=== PATIENT | male | born 1990 | race Caucasian/White ===

== ENCOUNTER 2022-08-14 04:40 | Emergency (ER) | payer OTHER, SELFPAY ==
[2022-08-14 04:50] VITALS: BP 137/99; PULSE 86; RESP 18; TEMP 36.6; O2SAT 99; BMI 29.4
--- NOTE | 2022-08-14 04:51 | ECG_ITS ---
[facility] Test Date: 2022-08-14 Pat Name: Justin Vegas Department: Room: Gender: Male Trommel Tender: : 1990 Requested By: Jahaira Herman Order Number: [id number] Benjamín MD: Tone Cody M.D. Measurements Intervals [place] Rate: 105 P: 79 TN: 165 QRS: 84 QRSD: 94 T: 87 QT: 267 QTc: 353 Interpretive Statements SINUS TACHYCARDIA NONSPECIFIC T-WAVE ABNORMALITY No previous ECG available for comparison Electronically Signed On 08-14-2022 23:27:22 [employer] by Tone Cody M.D. [id number]
--- NOTE | 2022-08-14 04:51 | W.ED.ABDPA2 ---
Documented by User: Jahaira Herman MD 08/14/22 05:24 HPI - Abdominal Pain General: Chief Complaint: Abdominal Pain Stated Complaint: ABD Pain Time Seen by Provider: 08/14/22 04:46 Source: patient Mode of arrival: ambulatory Limitations: no limitations History of Present Illness: 32-year-old male states he started having epigastric abdominal pain along with right-sided abdominal pain that was severe in nature started at 1230 states he had 1 episode of vomiting states pain is currently an 8 out of 10 he denies any radiation of his pain he denies any worsening improving factors. He denies any dysuria. Associated Symptoms: Reports nausea and vomiting; Denies chills, dysuria and fever(s) Review of Systems Const: Denies: fever(s), chills, body aches or change in appetite Eyes: Denies: blurry vision or eye discomfort ENMT: Denies: throat pain or dental pain Card: Denies: chest pain Resp: Denies: dyspnea GI: Reports: abdominal pain, nausea and vomiting : Denies: dysuria Musc: Denies: neck pain or back pain Skin/Breast: Denies: rash Neuro: Denies: headache(s) Psych: Denies: depression Charles/Lymph: Denies: easy bruising All/Imm: Denies: urticaria PFSH ED PFSH: Medical History No pertinent past medical history Social History (Updated 08/14/22 @ 04:52 by Jahaira Herman MD) Substance/Drug Use: never Physical Exam Const: COMMON NORMALS: no acute distress, patient oriented x3 and healthy appearing HENMT: COMMON NORMALS: normocephalic and atraumatic HEAD & SCALP: normocephalic and atraumatic Eye: COMMON NORMALS: Equal, round and reactive pupils present and EOMs intact bilaterally PUPIL: Yes Equal, round and reactive pupils present Neck/C-Spine: COMMON NORMALS: full ROM and supple Chest: COMMONS NORMALS: normal inspection of the chest and normal palpation of entire chest wall Resp: COMMON NORMALS: normal respiratory effort, No retractions, No use of accessory muscles and clear to auscultation bilaterally AUSCULTATION: clear to auscultation bilaterally Cardio: COMMON NORMALS: regular rate, regular rhythm and No murmurs present (Cardio) RATE: regular rate RHYTHM: regular rhythm GI: COMMON NORMALS: Normal to inspection, nondistended, normoactive bowel sounds present, Soft to palpation, non-tender and no masses PALPATION: Yes Soft to palpation Extremity: COMMON NORMALS: normal to inspection and full ROM Neuro: COMMON NORMALS: patient oriented x3, moves all extremities and no focal motor deficits Psych: COMMON NORMALS: mental status grossly normal, Normal thought process present and cooperative THOUGHT PROCESS: Normal thought process present Skin: COMMON NORMALS: no rashes or lesions noted and no wounds GENERAL SKIN EXAM: no rashes or lesions noted Course Vital Signs: Vital signs: Vital Signs Temperature 97.9 F 08/14/22 04:50 Pulse Rate 87 08/14/22 07:28 Respiratory Rate 32 H 08/14/22 05:05 Blood Pressure 134/88 08/14/22 07:28 Pulse Oximetry 97 08/14/22 07:28 Oxygen Delivery Me thod 08/14/22 07:28 MDM - Abdominal Pain Lab Data 08/14/22 05:00 08/14/22 05:00 Labs/Radiology: Radiology Impressions Abdomen/Pelvis CT 08/14/22 04:53 IMPRESSION: 1. No free intraperitoneal air. 2. Several small bowel loops are fluid-filled and borderline/mildly prominent in size, see above discussion. This appearance could be secondary to some form of gastroenteritis. 3. Possible thickened mucosa/wall in the distal stomach, see above discussion. 4. Couple of mildly prominent right lower quadrant mesenteric lymph nodes, see above discussion. 5. Small left adrenal nodule, see above discussion. 6. Other findings discussed above. Chest X-Ray 08/14/22 05:34 IMPRESSION: 1. Mild perihilar opacities bilaterally, with some peribronchial thickening. See above discussion. 2. Other findings discussed above. Laboratory Results WBC 7.2 10^3/uL (4.0-10.0) 08/14/22 05:00 RBC 5.17 10^6/uL (4.1-5.3) 08/14/22 05:00 Hgb 15.6 g/dL (11.7-16.6) 08/14/22 05:00 Hct 44.9 % (42.0-52.0) 08/14/22 05:00 MCV 86.8 fl (80-94) 08/14/22 05:00 MCH 30.2 pg (28.0-34.0) 08/14/22 05:00 MCHC 34.7 g/dL (30.0-36.0) 08/14/22 05:00 RDW 11.5 % (12.1-15.1) L 08/14/22 05:00 Plt Count 318 10^3/cmm (130-400) 08/14/22 05:00 MPV 8.6 fL (7.4-10.4) 08/14/22 05:00 Neut % (Auto) 71.9 % 08/14/22 05:00 Lymph % (Auto) 22.4 % 08/14/22 05:00 [place] % (Auto) 4.3 % 08/14/22 05:00 Eos % (Auto) 1.0 % 08/14/22 05:00 Baso % (Auto) 0.3 % 08/14/22 05:00 Neut # (Auto) 5.14 10^3/uL (1.8-7.7) 08/14/22 05:00 Lymph # (Auto) 1.6 10^3/uL (0.8-4.8) 08/14/22 05:00 [place] # (Auto) 0.3 10^3/uL (0.2-0.9) 08/14/22 05:00 Eos # (Auto) 0.1 10^3/uL (0.0-0.8) 08/14/22 05:00 Baso # (Auto) 0.0 10^3/uL (0.0-0.1) 08/14/22 05:00 Nucleated RBC % (auto) 0 % 08/14/22 05:00 Nucleated RBCs # 0.0 /100WBC 08/14/22 05:00 Sodium 135 mmol/L (136-145) L 08/14/22 05:00 Potassium 4.1 mmol/L (3.5-5.1) 08/14/22 05:00 Chloride 99 mmol/L (98-107) 08/14/22 05:00 Carbon Dioxide 22 mmol/L (22-29) 08/14/22 05:00 Anion Gap 18.1 (5-19) 08/14/22 05:00 BUN 15 mg/dL (6-20) 08/14/22 05:00 Creatinine 0.9 mg/dL (0.7-1.2) 08/14/22 05:00 GFR Calculation 98.4 mL/min (90-130) 08/14/22 05:00 Glucose 158 mg/dL (65-115) H 08/14/22 05:00 Calculated Osmolality 284 mOsm/kg (285-295) L 08/14/22 05:00 Calcium 9.7 mg/dL (8.5-10.5) 08/14/22 05:00 Total Bilirubin 0.5 mg/dL (0.15-1.2) 08/14/22 05:00 AST 21 U/L (0-40) 08/14/22 05:00 ALT 22 U/L (0-41) 08/14/22 05:00 Alkaline Phosphatase 104 U/L (40-130) 08/14/22 05:00 Total Protein 7.8 g/dL (6.6-8.7) 08/14/22 05:00 Albumin 4.8 g/dL (3.5-5.2) 08/14/22 05:00 Globulin 3.0 g/dL (1.3-4.6) 08/14/22 05:00 Lipase 21 U/L (13-60) 08/14/22 05:00 Urine Color Yellow (Yellow) 08/14/22 06:04 Urine Appearance Sl hazy (CLEAR) A 08/14/22 06:04 Urine pH 8 (5-7) H 08/14/22 06:04 Ur Specific [place] 1.015 (1.005-1.030) 08/14/22 06:04 Urine Protein Neg (Negative) 08/14/22 06:04 Urine Glucose (UA) Norm (Normal) 08/14/22 06:04 Urine Ketones Negative (Negative) 08/14/22 06:04 Urine Blood Neg (Negative) 08/14/22 06:04 Urine Nitrate Negative (Negative) 08/14/22 06:04 Urine Bilirubin Neg (Negative) 08/14/22 06:04 Prot Sulfosalicylic Acd Negative (Negative) 08/14/22 06:04 Urine Urobilinogen Norm mg/dL (Negative) 08/14/22 06:04 Ur Leukocyte Esterase Negative (Negative) 08/14/22 06:04 Discharge Plan Discharge Patient Disposition: Home Clinical Impression: Abdominal pain, Gastroenteritis Prescriptions: New Protonix 40 mg tablet,delayed release (DR/EC) 40 mg PO DAILY Qty: 60 0RF ondansetron HCl 4 mg tablet 4 mg PO Q6H PRN (Reason: nausea and vomiting) Qty: 20 0RF Discharge Orders: Discharge ED (Routine); Ordered 08/14/22 Ordered By: Calin Ayers Referrals: Richard Izquierdo DO [Physician] - 1-3 days Quincy Rivera MD [Physician] - 1-3 days Discharge Diet: Advance as tolerated Discharge Activity: Resume usual activity Patient Instructions: Abdominal Pain (ED) Activity Restrictions/Additional Instructions: You are seen in the emergency room for abdominal pain. Your white count is normal. CT of your abdomen and shows evidence of lymph nodes and small areas of bowel irritation consistent with gastroenteritis. Recommend clear liquid diet for next 24 to 48 hours antiemetics as needed for symptoms follow-up as needed return to the emergency room if your symptoms worsen significantly. Sign Out Sign Out Data: Patient Sign Out occurred on 08/14/22 at 07:13. Patient's care was discussed, and care was transferred from to Calin Ayers DO. Coding Level of Care Code ED Double Back Operator for Chg Fwd Exam Comprehensive Documented by User: Calin Ayers DO 08/14/22 07:44 HPI - Abdominal Pain General: Chief Complaint: Abdominal Pain Stated Complaint: ABD Pain Time Seen by Provider: 08/14/22 04:46 PFSH ED PFSH: Medical History No pertinent past medical history Social History (Updated 08/14/22 @ 04:52 by Jahaira Herman MD) Substance/Drug Use: never Course Vital Signs: Vital signs: Vital Signs Temperature 97.9 F 08/14/22 04:50 Pulse Rate 87 08/14/22 07:28 Respiratory Rate 32 H 08/14/22 05:05 Blood Pressure 134/88 08/14/22 07:28 Pulse Oximetry 97 08/14/22 07:28 Oxygen Delivery Me thod 08/14/22 07:28 MDM - Abdominal Pain Medical Decision Making Patient care handoff received from Batsheva continuation of ED evaluation. I personally saw and reevaluated. I discussed patient with Dr. Herman at change of shift. Patient's only complaint has been abdominal. CT shows some fluid-filled loops of bowel and some adenopathy consistent with gastroenteritis. Chest x-ray was read as pneumonitis however patient does not have any respiratory symptoms. He not complain of any respiratory symptoms and his evaluation was normal. He is only complaint was nausea. He did receive Ativan after which he was somewhat sedate and briefly was given supplemental oxygen however when I returned to reevaluate the patient we turned the oxygen off and his sats remained in the normal range. Advised patient likely gastroenteritis is clear-cut 24 to 48 hours ondansetron as needed. He has any worsening change symptoms return. Since he is not having any respiratory symptoms did not treat the reported findings on the chest x-ray. Medical Records I reviewed the patient's medical records. Lab Data I reviewed the patient's lab results. 08/14/22 05:00 08/14/22 05:00 Labs/Radiology: Radiology Impressions Abdomen/Pelvis CT 08/14/22 04:53 IMPRESSION: 1. No free intraperitoneal air. 2. Several small bowel loops are fluid-filled and borderline/mildly prominent in size, see above discussion. This appearance could be secondary to some form of gastroenteritis. 3. Possible thickened mucosa/wall in the distal stomach, see above discussion. 4. Couple of mildly prominent right lower quadrant mesenteric lymph nodes, see above discussion. 5. Small left adrenal nodule, see above discussion. 6. Other findings discussed above. Chest X-Ray 08/14/22 05:34
--- NOTE | 2022-08-14 04:53 | CTR_ITS ---
PROCEDURE INFORMATION: Exam: CT Abdomen And Pelvis With Contrast Exam date and time: 08/14/2022 5:07 AM Age: 32 years old Clinical indication: Abdominal pain; Prior surgery; Surgery type: Hernia repair. Appy. Patient HX: C/O severe periumbilical pain. ; Additional info: Abd pain TECHNIQUE: Imaging protocol: Computed tomography of the abdomen and pelvis with contrast. Radiation optimization: All CT scans at this facility use at least one of these dose optimization techniques: automated exposure control; mA and/or kV adjustment per patient size (includes targeted exams where dose is matched to clinical indication); or iterative reconstruction. Contrast material: OMNI 350; Contrast volume: 100 ml; Contrast route: INTRAVENOUS (IV); Other protocol: This patient has received 0 known CTs and 0 known cardiac nuclear medicine studies in the 12 months prior to the current study. COMPARISON: CT abdomen pelvis w con* [id number] 03/20/2017 9:55 AM RADIATION DOSE METRICS: Total DLP (mGy-cm): 646.53 FINDINGS: Lungs: The lung bases are clear. Liver: Unremarkable. Gallbladder and bile ducts: No definite gallbladder abnormality by CT. No biliary tree dilation. Pancreas: Unremarkable. Spleen: Unremarkable. Adrenal glands: There is a 23 x 17 mm nodule in the left adrenal gland. In 2017, it measured about 12 x 8 mm. Statistically, this is still most likely a benign adenoma, and it measures close to water attenuation even on this postcontrast scan. If there is clinical suspicion to suspect any other lesion, a follow-up noncontrast CT, or MRI of the adrenal glands may be useful in the future for further followup, or evaluation/characterization. The right adrenal gland appears unremarkable Kidneys and ureters: Unremarkable. Stomach and bowel: Several small bowel loops are fluid-filled and borderline/mildly prominent in size. The proximal jejunum appears most prominent. However, the overall appearance is not strongly suggestive of significant small bowel obstruction at this time. This appearance could be secondary to some form of gastroenteritis. Please correlate clinically. If there is clinical suspicion for small bowel obstruction, follow-up may be helpful to exclude progression. Possibility of somewhat thickened mucosa/wall in the distal stomach. This is a nonspecific appearance, and could be transient on CT due to poor gastric distention. This could also represent evidence for gastritis or peptic ulcer disease. Please correlate clinically. There are no CT findings to strongly suggest diverticulitis. Appendix: Reportedly, there has been prior appendectomy. Intraperitoneal space: No free intraperitoneal air, or ascites. Vasculature: No evidence for abdominal aortic aneurysm. Lymph nodes: Couple of mildly prominent right lower quadrant mesenteric lymph nodes. This is a nonspecific appearance. Mesenteric adenitis might be considered. However, the appearance is relatively mild, and similar to the prior exam. Please correlate clinically. Urinary bladder: Unremarkable as visualized. Reproductive: Essentially unremarkable for age. Bones/joints: There is bilateral L5 spondylolysis, no significant/obvious spondylolisthesis. No significant change. Soft tissues: Very small umbilical hernia, containing only fat. CT/CT abdomen pelvis w con* [id number] IMPRESSION: 1. No free intraperitoneal air. 2. Several small bowel loops are fluid-filled and borderline/mildly prominent in size, see above discussion. This appearance could be secondary to some form of gastroenteritis. 3. Possible thickened mucosa/wall in the distal stomach, see above discussion. 4. Couple of mildly prominent right lower quadrant mesenteric lymph nodes, see above discussion. 5. Small left adrenal nodule, see above discussion. 6. Other findings discussed above.
[2022-08-14 05:05] VITALS: RESP 32
[2022-08-14] MEDS: ondansetron 2 mg/ML SDV 2 mL 4 MG IVP (05:05)
[2022-08-14] MEDS: HYDROmorphone 1 mg/mL INJ 1 mL IVP (05:05)
[2022-08-14] MEDS: sodium chloride 0.9% 1,000 ML 999 ML IV (05:07)
[2022-08-14] MEDS: iohexol 350 mg/mL 500 mL Btl (per mL) IV (05:10)
[2022-08-14 05:13] LABS: Basophils % 0.3 %; Eosinophils # 0.1 10^3/uL (0.0-0.8); Hematocrit 44.9 % (42.0-52.0); Hemoglobin 15.6 g/dL (11.7-16.6); Lymphocytes # 1.6 10^3/uL (0.8-4.8); Lymphocytes % 22.4 %; Mean Corpuscular HGB Conc 34.7 g/dL (30.0-36.0); Mean Corpuscular Hemoglobin 30.2 pg (28.0-34.0); Mean Corpuscular Volume 86.8 fl (80-94); Mean Platelet Volume 8.6 fL (7.4-10.4); Monocytes # 0.3 10^3/uL (0.2-0.9); Monocytes % 4.3 %; Neutrophils # 5.14 10^3/uL (1.8-7.7); Neutrophils % 71.9 %; Nucleated Red Blood Cells % 0 %; Platelet Count 318 10^3/cmm (130-400); Red Blood Count 5.17 10^6/uL (4.1-5.3); Red Cell Distribution Width 11.5 % (12.1-15.1); White Blood Count 7.2 10^3/uL (4.0-10.0)
[2022-08-14 05:32] LABS: Alanine Aminotransferase 22 U/L (0-41); Albumin Level 4.8 g/dL (3.5-5.2); Alkaline Phosphatase 104 U/L (40-130); Anion Gap 18.1 (5-19); Aspartate Amino Transferase 21 U/L (0-40); Blood Urea Nitrogen 15 mg/dL (6-20); Calcium 9.7 mg/dL (8.5-10.5); Carbon Dioxide 22 mmol/L (22-29); Chloride 99 mmol/L (98-107); Glomerular Filtration Rate 98.4 mL/min (90-130); Glucose 158 mg/dL (65-115); Lipase 21 U/L (13-60); Osmolality Calculated 284 mOsm/kg (285-295); Potassium 4.1 mmol/L (3.5-5.1); Sodium 135 mmol/L (136-145); Total Bilirubin 0.5 mg/dL (0.15-1.2); Total Protein 7.8 g/dL (6.6-8.7)
--- NOTE | 2022-08-14 05:34 | XRR_ITS ---
PROCEDURE INFORMATION: Exam: XR Chest Exam date and time: 08/14/2022 5:37 AM Age: 32 years old Clinical indication: Tachypnea; Patient HX: Patient persistently tachypneic while in er. ; Additional info: Abd pain TECHNIQUE: Imaging protocol: Radiologic exam of the chest. Views: 1 view. COMPARISON: CT abdomen pelvis w con* [id number] 08/14/2022 5:07 AM FINDINGS: Lungs: There are mild perihilar opacities bilaterally, with some peribronchial thickening. While nonspecific, this appearance could represent evidence for mild CHF/interstitial pulmonary edema. Some type of bronchitis/pneumonitis might also be considered. Please correlate clinically. Pleural spaces: No visible pneumothorax. No definite pleural fluid. Heart/Mediastinum: Heart size is within normal limits. Bones/joints: No significant acute finding. XR/XR chest 1V portable [id number] IMPRESSION: 1. Mild perihilar opacities bilaterally, with some peribronchial thickening. See above discussion. 2. Other findings discussed above.
[2022-08-14] MEDS: LORazepam 2 mg/mL INJ 1 mL 1 MG IVP (05:39)
[2022-08-14 06:13] LABS: Add Urine Microscopic? NO; Charge for UA Resulting for Rev
[2022-08-14 06:21] LABS: Bilirubin Urine Neg (Negative); Blood Urine Neg (Negative); Glucose Urine UA Norm (Normal); Ketones Urine Negative (Negative); Leukocyte Esterase Urine Negative (Negative); Nitrate Urine Negative (Negative); Protein Urine Neg (Negative); Specific Gravity, Urine 1.015 (1.005-1.030); Sulfosalicylic Acid Urine Negative (Negative); Urine Appearance SL Hazy (CLEAR); Urine Color Yellow (Yellow); Urobilinogen Urine Norm (Negative); pH Urine 8 (5-7)
[2022-08-14 07:28] VITALS: BP 134/88; PULSE 87; O2SAT 97
--- NOTE | 2022-08-14 09:12 | DCPLANNER ---
Addendum entered by Sushila De Anda 09/09/22 08:07: Patient had a follow up appointment scheduled with general surgery - patient did attend appointment. Addendum entered by Sushila De Anda 08/18/22 14:52: Patient has a follow up appointment scheduled for Thursday, August 25, 2022 at 10:[address] Izquierdo at general surgery. Clinic will call patient with appointment information. Original Note: competitive intelligence manager had message to schedule a follow up appointment for patient with general surgery. competitive intelligence manager sent patients information to the front office staff at general surgery. Patients information will be printed and reviewed. Clinic will call patient with appointment information.
== END 2022-08-14 07:32 | disposition home or self-care (01) ==
PROVIDERS: Emergency Medicine; Emergency Provider Family Medicine
DX: K52.9 Noninfective gastroenteritis and colitis, unspecified (principal); R10.13 Epigastric pain
CPT/HCPCS: 71045; 74177; 80053; 81003; 83690; 85025; 93005; 96374; 96375; 99285; J1170; J2060; J2405; J7030; Q9967

== ENCOUNTER 2022-08-15 20:47 | Emergency (ER) | payer OTHER, SELFPAY ==
[2022-08-15 20:51] VITALS: BP 157/103; PULSE 75; RESP 19; TEMP 37.2; O2SAT 100; BMI 29.4
[2022-08-15 21:16] VITALS: BP 137/90; PULSE 73; RESP 20; O2SAT 100
--- NOTE | 2022-08-15 21:20 | PC.NURSE ---
[facility] 2120- pt resting in bed with spouse at bedside. Monitor alarms with pts spo2 sats 76%. Patient appears to be asleep without taking deep breaths. No medications have been administered so far by ER. Attempt to arouse pt, and Dr Levin in room provided jaw trust. O2 via nc @ 2l placed on pt. Sats 98%. Pt awake / alert at this time.
--- NOTE | 2022-08-15 21:53 | CTR_ITS ---
PROCEDURE INFORMATION: Exam: CT Abdomen And Pelvis With Contrast Exam date and time: 08/15/2022 10:21 PM Age: 32 years old Clinical indication: Abdominal pain; Epigastric TECHNIQUE: Imaging protocol: Computed tomography of the abdomen and pelvis with contrast. Radiation optimization: All CT scans at this facility use at least one of these dose optimization techniques: automated exposure control; mA and/or kV adjustment per patient size (includes targeted exams where dose is matched to clinical indication); or iterative reconstruction. Contrast material: OMNI 350; Contrast volume: 100 ml; Contrast route: INTRAVENOUS (IV); Other protocol: This patient has received [address] and 0 known cardiac nuclear medicine studies in the 12 months prior to the current study. COMPARISON: CT abdomen pelvis w con* [id number] 08/14/2022 5:07 AM RADIATION DOSE METRICS: Total DLP (mGy-cm): 633.33 FINDINGS: Lungs: Lung bases are clear. Liver: There is no focal abnormality within the liver. Gallbladder and bile ducts: Gallbladder is mildly distended but otherwise unremarkable. Gallbladder is 9 cm in length and over 4 cm in diameter. Pancreas: The pancreas is normal. Spleen: The spleen is normal. Adrenal glands: There is a 2 cm sized hypoenhancing left adrenal mass. This measures around 20 Hounsfield units and is indeterminate on this examination. As this is significantly larger than on 03/20/2017 when it measured 12 mm further evaluation such as with non urgent adrenal CT scan recommended. Kidneys and ureters: The kidneys are normal. There is no evidence of hydronephrosis. There is no evidence of renal or ureteral calcifications. Stomach and bowel: There is no evidence of colitis/diverticulitis. There is no evidence of intestinal obstruction. Appendix: There has been an appendectomy. Intraperitoneal space: There is no evidence of free intraperitoneal fluid. There is no free intraperitoneal air. Vasculature: The aorta is normal. Lymph nodes: There is no evidence of lymphadenopathy. A few mildly prominent right lower quadrant mesenteric lymph nodes again identified not significantly changed since 03/20/2017. Urinary bladder: Unremarkable as visualized. Reproductive: Unremarkable as visualized. Bones/joints: Unremarkable. No acute fracture. Soft tissues: Unremarkable. CT/CT abdomen pelvis w con* [id number] IMPRESSION: 1. Mild distention of the gallbladder similar to 03/20/2017. 2. Left adrenal nodule as described, larger than on 03/20/2017. Follow-up non urgent adrenal protocol CT suggested. 3. No acute finding.
[2022-08-15 22:00] LABS: Basophils % 0.5 %; Eosinophils # 0.1 10^3/uL (0.0-0.8); Eosinophils % 1.2 %; Hematocrit 44.7 % (42.0-52.0); Hemoglobin 15.2 g/dL (11.7-16.6); Lymphocytes % 22.6 %; Mean Corpuscular Hemoglobin 30.2 pg (28.0-34.0); Mean Corpuscular Volume 88.7 fl (80-94); Mean Platelet Volume 8.9 fL (7.4-10.4); Monocytes # 0.5 10^3/uL (0.2-0.9); Monocytes % 5.1 %; Neutrophils # 6.22 10^3/uL (1.8-7.7); Neutrophils % 70.4 %; Nucleated Red Blood Cells % 0 %; Platelet Count 352 10^3/cmm (130-400); Red Blood Count 5.04 10^6/uL (4.1-5.3); Red Cell Distribution Width 11.6 % (12.1-15.1); White Blood Count 8.8 10^3/uL (4.0-10.0)
[2022-08-15 22:03] VITALS: RESP 22
[2022-08-15] MEDS: iohexol 350 mg/mL 500 mL Btl (per mL) IV (22:03)
[2022-08-15] MEDS: morphine 4 mg/mL SDV 1 mL IVP (22:03)
[2022-08-15] MEDS: pantoprazole DR 40 mg Tablet PO (22:03)
[2022-08-15] MEDS: lidocaine 2% viscous 15 ML, aluminum-mag hydrox-simethicon 30 ML, sucralfate oral liq 1 GM PO (22:04)
[2022-08-15 22:11] LABS: Alanine Aminotransferase 19 U/L (0-41); Albumin Level 4.7 g/dL (3.5-5.2); Alkaline Phosphatase 101 U/L (40-130); Anion Gap 14.9 (5-19); Aspartate Amino Transferase 15 U/L (0-40); Blood Urea Nitrogen 7 mg/dL (6-20); Calcium 10.1 mg/dL (8.5-10.5); Carbon Dioxide 26 mmol/L (22-29); Chloride 98 mmol/L (98-107); Globulin 2.5 g/dL (1.3-4.6); Glomerular Filtration Rate 112.8 mL/min (90-130); Glucose 101 mg/dL (65-115); Lipase 17 U/L (13-60); Osmolality Calculated 278 mOsm/kg (285-295); Potassium 3.9 mmol/L (3.5-5.1); Sodium 135 mmol/L (136-145); Total Bilirubin 0.6 mg/dL (0.15-1.2); Total Protein 7.2 g/dL (6.6-8.7)
--- NOTE | 2022-08-15 23:21 | W.ED.ABDPA2 ---
HPI - Abdominal Pain General: Chief Complaint: Abdominal Pain Stated Complaint: upper abdomen pain, cp Time Seen by Provider: 08/15/22 21:11 Source: patient and family () Mode of arrival: ambulatory Limitations: no limitations History of Present Illness: This 32-year-old male presents with epigastric pain that started 2 days ago. Pain is sharp in nature and constant. He was seen here yesterday following which CT abdomen/pelvis was done. It was essentially unremarkable. Patient reports that eating or drinking makes the pain worse. He has no fever but does have nausea. He tried Tums with no relief. Associated Symptoms: Reports nausea and vomiting; Denies chills and dysuria Review of Systems Const: Denies: chills, body aches or change in appetite Eyes: Denies: change in vision or eye discharge ENMT: Denies: throat pain, dental pain or nasal discharge Card: Denies: chest pain or lightheadedness GI: Reports: abdominal pain (Epigastric), nausea and vomiting : Denies: dysuria Musc: Denies: neck pain or back pain Neuro: Denies: headache(s) or weakness in extremities Psych: Denies: depression Charles/Lymph: Denies: easy bruising All/Imm: Denies: urticaria, tongue swelling or facial swelling PFSH ED PFSH: Medical History No pertinent past medical history Physical Exam Const: COMMON NORMALS: patient oriented x3, no limitations and alert OTHER: Moderate distress due to epigastric pain HENMT: COMMON NORMALS: normocephalic HEAD & SCALP: normocephalic Eye: COMMON NORMALS: EOMs intact bilaterally Neck/C-Spine: COMMON NORMALS: full ROM and supple Chest: COMMONS NORMALS: normal inspection of the chest Resp: COMMON NORMALS: normal respiratory effort, No retractions, No use of accessory muscles and clear to auscultation bilaterally AUSCULTATION: clear to auscultation bilaterally Cardio: COMMON NORMALS: regular rate, regular rhythm and No murmurs present (Cardio) RATE: regular rate RHYTHM: regular rhythm GI: COMMON NORMALS: Normal to inspection, nondistended, normoactive bowel sounds present OTHER: Soft abdomen, tenderness in the epigastric region. No distention or rigidity. Normal bowel sounds. : COMMON NORMALS: Yes no CVA tenderness BLADDER/KIDNEY EXAM: Yes no CVA tenderness Back/Pelvis: COMMON NORMALS: no CVA tenderness and no thoracic nor lumbar tenderness Extremity: GENERAL: Yes normal exam except as noted Neuro: COMMON NORMALS: patient oriented x3 and no focal motor deficits SENSORIUM/ORIENTATION: Yes alert Psych: COMMON NORMALS: mental status grossly normal and cooperative Course Vital Signs: Vital signs: Vital Signs Temperature 99.0 F 08/15/22 20:51 Pulse Rate 73 08/15/22 21:16 Respiratory Rate 22 H 08/15/22 22:03 Blood Pressure 137/90 08/15/22 21:16 Pulse Oximetry 100 08/15/22 21:16 Oxygen Delivery Me thod 08/15/22 20:51 MDM - Abdominal Pain Medical Decision Making Medical decision making: History as above. Given the degree of pain and tenderness patient has in the epigastric area, CT abdomen/pelvis was repeated. Again it is negative for any acute findings. The gallbladder appears mildly distended but this seems to be the case in his last CT. Completed blood tests are unremarkable with normal lipase and normal white count with no left shift. Given his persistence of symptoms, I believe that he will benefit from an outpatient HIDA scan to assess the gallbladder function. His pain could also be from gastritis. Acute pancreatitis is unlikely at this time. In the meantime, he was advised to continue taking the Protonix he was given yesterday. I will add Gonzales to help control his pain while he follows up with his primary care physician as already scheduled in 2 days time. His primary care physician will set him up for an outpatient HIDA scan. Patient was advised to return if he develops worsening pain, fever, intractable vomiting or any new concerning symptoms. He verbalized understanding and agrees with the plan. Lab Data 08/15/22 21:13 08/15/22 21:13 Labs/Radiology: Radiology Impressions Abdomen/Pelvis CT 08/15/22 21:53 IMPRESSION: 1. Mild distention of the gallbladder similar to 03/20/2017. 2. Left adrenal nodule as described, larger than on 03/20/2017. Follow-up non urgent adrenal protocol CT suggested. 3. No acute finding. Laboratory Results WBC 8.8 10^3/uL (4.0-10.0) 08/15/22 21:13 RBC 5.04 10^6/uL (4.1-5.3) 08/15/22 21:13 Hgb 15.2 g/dL (11.7-16.6) 08/15/22 21:13 Hct 44.7 % (42.0-52.0) 08/15/22 21:13 MCV 88.7 fl (80-94) 08/15/22 21:13 MCH 30.2 pg (28.0-34.0) 08/15/22 21:13 MCHC 34.0 g/dL (30.0-36.0) 08/15/22 21:13 RDW 11.6 % (12.1-15.1) L 08/15/22 21:13 Plt Count 352 10^3/cmm (130-400) 08/15/22 21:13 MPV 8.9 fL (7.4-10.4) 08/15/22 21:13 Neut % (Auto) 70.4 % 08/15/22 21:13 Lymph % (Auto) 22.6 % 08/15/22 21:13 Grand % (Auto) 5.1 % 08/15/22 21:13 Eos % (Auto) 1.2 % 08/15/22 21:13 Baso % (Auto) 0.5 % 08/15/22 21:13 Neut # (Auto) 6.22 10^3/uL (1.8-7.7) 08/15/22 21:13 Lymph # (Auto) 2.0 10^3/uL (0.8-4.8) 08/15/22 21:13 Grand # (Auto) 0.5 10^3/uL (0.2-0.9) 08/15/22 21:13 Eos # (Auto) 0.1 10^3/uL (0.0-0.8) 08/15/22 21:13 Baso # (Auto) 0.0 10^3/uL (0.0-0.1) 08/15/22 21:13 Nucleated RBC % (auto) 0 % 08/15/22 21:13 Nucleated RBCs # 0.0 /100WBC 08/15/22 21:13 Sodium 135 mmol/L (136-145) L 08/15/22 21:13 Potassium 3.9 mmol/L (3.5-5.1) 08/15/22 21:13 Chloride 98 mmol/L (98-107) 08/15/22 21:13 Carbon Dioxide 26 mmol/L (22-29) 08/15/22 21:13 Anion Gap 14.9 (5-19) 08/15/22 21:13 BUN 7 mg/dL (6-20) 08/15/22 21:13 Creatinine 0.8 mg/dL (0.7-1.2) 08/15/22 21:13 GFR Calculation 112.8 mL/min (90-130) 08/15/22 21:13 Glucose 101 mg/dL (65-115) 08/15/22 21:13 Calculated Osmolality 278 mOsm/kg (285-295) L 08/15/22 21:13 Calcium 10.1 mg/dL (8.5-10.5) 08/15/22 21:13 Total Bilirubin 0.6 mg/dL (0.15-1.2) 08/15/22 21:13 AST 15 U/L (0-40) 08/15/22 21:13 ALT 19 U/L (0-41) 08/15/22 21:13 Alkaline Phosphatase 101 U/L (40-130) 08/15/22 21:13 Total Protein 7.2 g/dL (6.6-8.7) 08/15/22 21:13 Albumin 4.7 g/dL (3.5-5.2) 08/15/22 21:13 Globulin 2.5 g/dL (1.3-4.6) 08/15/22 21:13 Lipase 17 U/L (13-60) 08/15/22 21:13 Discharge Plan Discharge Patient Disposition: Home Clinical Impression: Epigastric abdominal pain, Gastritis Condition: Stable Prescriptions: New hydrocodone-acetaminophen 5-325 mg tablet 1 tab PO Q6H PRN (Reason: pain) Qty: 20 0RF No Action Protonix 40 mg tablet,delayed release (DR/EC) 40 mg PO DAILY Qty: 60 0RF ondansetron HCl 4 mg tablet 4 mg PO Q6H PRN (Reason: nausea and vomiting) Qty: 20 0RF Discharge Orders: Discharge ED (Routine); Ordered 08/15/22 Ordered By: Vivien Whitfield Patient Instructions: Abdominal Pain (ED), Opioid Safety, Pain Management Activity Restrictions/Additional Instructions: Continue taking the pantoprazole that she received yesterday. Take hydrocodone as needed for pain. Follow-up with your primary care physician on Wednesday (2 days time) as already scheduled. Your primary care physician will set you up for an outpatient HIDA scan of your gallbladder. Return if you develop fever with temperature of 100.4 or more, intractable vomiting, worsening pain or any new concerning symptoms. Coding Level of Care Code ED Patient Access for Lyla Roldan
[2022-08-15 23:33] VITALS: BP 122/82; PULSE 65; RESP 15; O2SAT 93
== END 2022-08-15 23:33 | disposition home or self-care (01) ==
PROVIDERS: Emergency Provider Family Medicine
DX: K29.70 Gastritis, unspecified, without bleeding (principal)
CPT/HCPCS: 74177; 80053; 83690; 85025; 96374; 99285; J2270; Q9967

== ENCOUNTER 2022-08-19 17:11 | Emergency (ER) | payer OTHER, SELFPAY ==
[2022-08-19 17:37] VITALS: BP 141/95; PULSE 103; RESP 20; TEMP 36.7; O2SAT 97; BMI 29.0
[2022-08-19 18:18] LABS: Basophils % 0.4 %; Eosinophils # 0.1 10^3/uL (0.0-0.8); Eosinophils % 1.3 %; Hematocrit 43.1 % (42.0-52.0); Hemoglobin 14.8 g/dL (11.7-16.6); Lymphocytes # 1.8 10^3/uL (0.8-4.8); Mean Corpuscular HGB Conc 34.3 g/dL (30.0-36.0); Mean Corpuscular Hemoglobin 30.4 pg (28.0-34.0); Mean Corpuscular Volume 88.5 fl (80-94); Mean Platelet Volume 8.6 fL (7.4-10.4); Monocytes # 0.4 10^3/uL (0.2-0.9); Monocytes % 3.9 %; Neutrophils # 6.66 10^3/uL (1.8-7.7); Neutrophils % 74.2 %; Nucleated Red Blood Cells % 0 %; Platelet Count 297 10^3/cmm (130-400); Red Blood Count 4.87 10^6/uL (4.1-5.3); Red Cell Distribution Width 11.7 % (12.1-15.1)
[2022-08-19 18:37] LABS: Alanine Aminotransferase 15 U/L (0-41); Albumin Level 4.5 g/dL (3.5-5.2); Alkaline Phosphatase 94 U/L (40-130); Anion Gap 12.3 (5-19); Aspartate Amino Transferase 16 U/L (0-40); Blood Urea Nitrogen 11 mg/dL (6-20); Calcium 10.1 mg/dL (8.5-10.5); Carbon Dioxide 29 mmol/L (22-29); Chloride 102 mmol/L (98-107); Globulin 2.5 g/dL (1.3-4.6); Glomerular Filtration Rate 131.5 mL/min (90-130); Glucose 109 mg/dL (65-115); Lipase 13 U/L (13-60); Osmolality Calculated 288 mOsm/kg (285-295); Potassium 4.3 mmol/L (3.5-5.1); Sodium 139 mmol/L (136-145); Total Bilirubin 0.6 mg/dL (0.15-1.2)
[2022-08-19 19:38] LABS: Add Urine Microscopic? NO; Charge for UA Resulting for Rev
[2022-08-19 19:42] LABS: Bilirubin Urine Neg (Negative); Blood Urine Neg (Negative); Glucose Urine UA Norm (Normal); Ketones Urine Negative (Negative); Leukocyte Esterase Urine Negative (Negative); Nitrate Urine Negative (Negative); Protein Urine Neg (Negative); Specific Gravity, Urine 1.005 (1.005-1.030); Urine Appearance Clear (CLEAR); Urine Color Yellow (Yellow); Urobilinogen Urine Neg (Negative); pH Urine 7 (5-7)
--- NOTE | 2022-08-19 21:22 | USR_ITS ---
PROCEDURE INFORMATION: Exam: US Abdomen, Limited; Right Upper Quadrant Exam date and time: 08/19/2022 9:48 PM Age: 32 years old Clinical indication: Abdominal pain; Epigastric; Prior surgery; Surgery date: 6+ months; Surgery type: Long chronic history of similar symptoms since 2017, has had 2 ct's, diagnosed 2017 with appendicitis, S/P appendectomy 2017. Now, continued similar symptoms, was here this er last Wednesday with a normal CT. Patient HX: Normal tbili = 0.6, normal ast = 16, normal alt = 15, normal alkphos = 94, normal lipase = 13. ; Additional info: Ruq pain TECHNIQUE: Imaging protocol: Real time ultrasound of the abdomen with image documentation. Limited exam focused on the right upper quadrant. COMPARISON: CT abdomen pelvis w con* [id number] 08/15/2022 10:21 PM FINDINGS: Liver: Normal. No masses. Gallbladder: Gallbladder is somewhat distended, however, is negative for cholelithiasis or cholecystitis. Biliary ducts: Normal. No stones. No dilation. Pancreas: Visualized pancreas is unremarkable. Right kidney: Normal. No mass. No hydronephrosis. US/US gall bladder [id number] IMPRESSION: Gallbladder is somewhat distended, however, is negative for cholelithiasis or cholecystitis.
[2022-08-19] MEDS: ondansetron 2 mg/ML SDV 2 mL 4 MG IVP (21:34)
[2022-08-19] MEDS: morphine 4 mg/mL SDV 1 mL IVP (21:34)
--- NOTE | 2022-08-19 21:34 | W.ED.ABDPA2 ---
HPI - Abdominal Pain General: Chief Complaint: Abdominal Pain Stated Complaint: abd pain Time Seen by Provider: 08/19/22 21:19 Source: patient Mode of arrival: ambulatory Limitations: no limitations History of Present Illness: 32-year-old male that states he has been having abdominal pain since Wednesday. He states pain is right upper quadrant pain sharp in nature he states that wax and wanes but is much worse with eating had a history of appendectomy he still has his gallbladder states pain is currently 4 out of 10 denies any vomiting denies any fevers. Associated Symptoms: Denies chills, dysuria and fever(s) Review of Systems Const: Denies: fever(s), chills, body aches or change in appetite Eyes: Denies: blurry vision or eye discomfort ENMT: Denies: throat pain or dental pain Card: Denies: chest pain Resp: Denies: dyspnea GI: Reports: abdominal pain : Denies: dysuria Musc: Denies: neck pain or back pain Skin/Breast: Denies: rash Neuro: Denies: headache(s) Psych: Denies: depression Charles/Lymph: Denies: easy bruising All/Imm: Denies: urticaria PFSH ED PFSH: Medical History No pertinent past medical history Social History (Updated 08/19/22 @ 21:35 by Jahaira Herman MD) Substance/Drug Use: never Physical Exam Const: COMMON NORMALS: no acute distress, patient oriented x3 and healthy appearing HENMT: COMMON NORMALS: normocephalic and atraumatic HEAD & SCALP: normocephalic and atraumatic Eye: COMMON NORMALS: Equal, round and reactive pupils present and EOMs intact bilaterally PUPIL: Yes Equal, round and reactive pupils present Neck/C-Spine: COMMON NORMALS: full ROM and supple Chest: COMMONS NORMALS: normal inspection of the chest and normal palpation of entire chest wall Resp: COMMON NORMALS: normal respiratory effort, No retractions, No use of accessory muscles and clear to auscultation bilaterally AUSCULTATION: clear to auscultation bilaterally Cardio: COMMON NORMALS: regular rate, regular rhythm and No murmurs present (Cardio) RATE: regular rate RHYTHM: regular rhythm GI: COMMON NORMALS: Normal to inspection, nondistended, normoactive bowel sounds present, Soft to palpation and no masses PALPATION: Yes Soft to palpation and Yes Tenderness to palpation present (GI) Details: RUQ Extremity: COMMON NORMALS: normal to inspection and full ROM Neuro: COMMON NORMALS: patient oriented x3, moves all extremities and no focal motor deficits Psych: COMMON NORMALS: mental status grossly normal, Normal thought process present and cooperative THOUGHT PROCESS: Normal thought process present Skin: COMMON NORMALS: no rashes or lesions noted and no wounds GENERAL SKIN EXAM: no rashes or lesions noted Course Vital Signs: Vital signs: Vital Signs Temperature 98.0 F 08/19/22 17:37 Pulse Rate 76 08/19/22 22:00 Respiratory Rate 16 08/19/22 22:00 Blood Pressure 131/91 08/19/22 22:00 Pulse Oximetry 100 08/19/22 22:00 Oxygen Delivery Me thod 08/19/22 17:37 MDM - Abdominal Pain Medical Decision Making Patient presents here with right upper quadrant abdominal pain his blood work here is normal no signs of cholecystitis he is already on Protonix he has an appointment scheduled Dr. Israel next week we will prescribe him pain meds he is to follow-up as scheduled return if worsening he understands agrees to plan his pain is improved at discharge he has no tenderness on exam at discharge. Lab Data 08/19/22 18:12 08/19/22 18:12 Labs/Radiology: Radiology Impressions Gallbladder Ultrasound 08/19/22 21:22 IMPRESSION: Gallbladder is somewhat distended, however, is negative for cholelithiasis or cholecystitis. Laboratory Results WBC 9.0 10^3/uL (4.0-10.0) 08/19/22 18:12 RBC 4.87 10^6/uL (4.1-5.3) 08/19/22 18:12 Hgb 14.8 g/dL (11.7-16.6) 08/19/22 18:12 Hct 43.1 % (42.0-52.0) 08/19/22 18:12 MCV 88.5 fl (80-94) 08/19/22 18:12 MCH 30.4 pg (28.0-34.0) 08/19/22 18:12 MCHC 34.3 g/dL (30.0-36.0) 08/19/22 18:12 RDW 11.7 % (12.1-15.1) L 08/19/22 18:12 Plt Count 297 10^3/cmm (130-400) 08/19/22 18:12 MPV 8.6 fL (7.4-10.4) 08/19/22 18:12 Neut % (Auto) 74.2 % 08/19/22 18:12 Lymph % (Auto) 20.0 % 08/19/22 18:12 Nance % (Auto) 3.9 % 08/19/22 18:12 Eos % (Auto) 1.3 % 08/19/22 18:12 Baso % (Auto) 0.4 % 08/19/22 18:12 Neut # (Auto) 6.66 10^3/uL (1.8-7.7) 08/19/22 18:12 Lymph # (Auto) 1.8 10^3/uL (0.8-4.8) 08/19/22 18:12 Nance # (Auto) 0.4 10^3/uL (0.2-0.9) 08/19/22 18:12 Eos # (Auto) 0.1 10^3/uL (0.0-0.8) 08/19/22 18:12 Baso # (Auto) 0.0 10^3/uL (0.0-0.1) 08/19/22 18:12 Nucleated RBC % (auto) 0 % 08/19/22 18:12 Nucleated RBCs # 0.0 /100WBC 08/19/22 18:12 Sodium 139 mmol/L (136-145) 08/19/22 18:12 Potassium 4.3 mmol/L (3.5-5.1) 08/19/22 18:12 Chloride 102 mmol/L (98-107) 08/19/22 18:12 Carbon Dioxide 29 mmol/L (22-29) 08/19/22 18:12 Anion Gap 12.3 (5-19) 08/19/22 18:12 BUN 11 mg/dL (6-20) 08/19/22 18:12 Creatinine 0.7 mg/dL (0.7-1.2) 08/19/22 18:12 GFR Calculation 131.5 mL/min (90-130) H 08/19/22 18:12 Glucose 109 mg/dL (65-115) 08/19/22 18:12 Calculated Osmolality 288 mOsm/kg (285-295) 08/19/22 18:12 Calcium 10.1 mg/dL (8.5-10.5) 08/19/22 18:12 Total Bilirubin 0.6 mg/dL (0.15-1.2) 08/19/22 18:12 AST 16 U/L (0-40) 08/19/22 18:12 ALT 15 U/L (0-41) 08/19/22 18:12 Alkaline Phosphatase 94 U/L (40-130) 08/19/22 18:12 Total Protein 7.0 g/dL (6.6-8.7) 08/19/22 18:12 Albumin 4.5 g/dL (3.5-5.2) 08/19/22 18:12 Globulin 2.5 g/dL (1.3-4.6) 08/19/22 18:12 Lipase 13 U/L (13-60) 08/19/22 18:12 Urine Color Yellow (Yellow) 08/19/22 19:29 Urine Appearance Clear (CLEAR) 08/19/22 19:29 Urine pH 7 (5-7) 08/19/22 19:29 Ur Specific Josephine 1.005 (1.005-1.030) 08/19/22 19:29 Urine Protein Neg (Negative) 08/19/22 19:29 Urine Glucose (UA) Norm (Normal) 08/19/22 19:29 Urine Ketones Negative (Negative) 08/19/22 19:29 Urine Blood Neg (Negative) 08/19/22 19:29 Urine Nitrate Negative (Negative) 08/19/22 19:29 Urine Bilirubin Neg (Negative) 08/19/22 19:29 Urine Urobilinogen Neg mg/dL (Negative) 08/19/22 19:29 Ur Leukocyte Esterase Negative (Negative) 08/19/22 19:29 Discharge Plan Discharge Patient Disposition: Home Clinical Impression: Abdominal pain Prescriptions: New hydrocodone-acetaminophen 5-325 mg tablet 1 tab PO Q6H PRN (Reason: pain) Qty: 14 0RF ondansetron 4 mg tablet,disintegrating 4 mg PO Q6H PRN (Reason: nausea and vomiting) Qty: 14 0RF No Action Protonix 40 mg tablet,delayed release (DR/EC) 40 mg PO DAILY Qty: 60 0RF ondansetron HCl 4 mg tablet 4 mg PO Q6H PRN (Reason: nausea and vomiting) Qty: 20 0RF hydrocodone-acetaminophen 5-325 mg tablet 1 tab PO Q6H PRN (Reason: pain) Qty: 20 0RF Discharge Orders: Discharge ED (Routine); Ordered 08/19/22 Ordered By: Jahaira Herman Referrals: Quincy Rivera MD [Primary Care Provider] - Discharge Diet: Advance as tolerated Discharge Activity: Resume usual activity Patient Instructions: Abdominal Pain (ED), Opioid Safety Coding Level of Care Code ED Business Development Representative for Lyla Roldan
[2022-08-19] MEDS: sodium chloride 0.9% 1,000 ML 999 ML IV (21:35)
[2022-08-19 21:39] VITALS: BP 131/94; PULSE 78; RESP 16; O2SAT 98
[2022-08-19 22:00] VITALS: BP 131/91; PULSE 76; RESP 16; O2SAT 100
== END 2022-08-19 22:55 | disposition home or self-care (01) ==
PROVIDERS: Emergency Medicine; Emergency Provider Emergency Medicine; PCP Family Medicine
DX: R10.13 Epigastric pain (principal)
CPT/HCPCS: 36415; 76705; 80053; 81003; 83690; 85025; 96361; 96374; 96375; 99285; J2270; J2405; J7030

== ENCOUNTER 2022-09-04 10:00 | Day surgery (SDC) | payer OTHER, SELFPAY ==
[2022-09-03 11:41] VITALS: BMI 29.4
[2022-09-04 10:20] VITALS: BP 131/100; PULSE 81; RESP 18; TEMP 36.4; O2SAT 100
[2022-09-04] MEDS: sodium chloride 0.9% 1,000 ML 30 ML IV (10:27)
--- NOTE | 2022-09-04 11:21 | ANES.PREANE2 ---
Pre-Anesthetic Assessment Height/Weight: Height 1.78 m Weight 92.986 kg Temp Pulse Resp BP Pulse Ox O2 Del Method 97.5 F L 81 18 131/100 100 09/04/22 10:20 09/04/22 10:20 09/04/22 10:20 09/04/22 10:20 09/04/22 10:20 09/04/22 10:20 Preop Diagnosis: epigastric pain Operation Date: 09/04/22 11:15 Proposed Procedures p [id number] egd R10.13(Not Applicable) - Richard Izquierdo DO Familial anesthetic complications: None Was Beta Kris taken within 24 hours: N/A Was Clonidine taken within 24 hours: N/A Last intake: Intake Last Liquid Date 09/03/22 Last Liquid Time 21:00 Last Solid Date 09/03/22 Last Solid Time 21:00 Social No alcohol and No tobacco Exam alert, oriented x 3, clear to auscultation bilaterally and regular rate & rhythm Airway Submandibular: within normal limits Cervical ROM: within normal limits Mallampati: Class II Dentition: full History/ROS No significant history except as noted Pulmonary Sleep Apnea CV/HEM None reported None reported Hepatic None reported GI epigastric pain Metabolic None reported Musc/skel None reported Neuropsych None reported Anesthetic Plan ASA status: 2 Anesthesia: Anesthesia Evaluation and MAC Risk of > 500 ml blood loss (7ml/kg in children): No Medications/Allergies Home Medications Medication Instructions Recorded Confirmed Last Taken Type ondansetron HCl 4 mg tablet 4 mg PO Q6H PRN nausea and 08/14/22 09/04/22 2 Weeks Ago Rx vomiting #20 tabs ~08/20/22 pantoprazole 40 mg tablet,delayed 40 mg PO DAILY #60 tabs 08/14/22 09/04/22 09/03/22 Rx release (Protonix) nortriptyline 75 mg capsule 75 mg PO DAILY 08/25/22 09/04/22 09/03/22 History pregabalin 150 mg capsule (Lyrica) 150 mg PO TID 08/25/22 09/04/22 09/04/22 History Allergies Allergy/AdvReac Type Severity Reaction Status Date / Time No Known Allergies Allergy Verified 09/04/22 10:19 Current Medications Generic Name Dose Route Start Last Admin Trade Name Freq PRN Reason Stop Dose Admin Sodium Chloride 1,000 mls @ 30 mls/hr 09/04/22 10:15 09/04/22 10:27 Sodium Chloride 0.9% IV 09/05/22 10:14 30 mls/hr .Q24H ALEENA Administration PFSH Anesthesia Medical History (Updated 08/25/22 @ 10:27 by Richard Izquierdo DO) No pertinent past medical history Surgical History (Updated 08/25/22 @ 10:28 by Richard Izquierdo DO) Hx of appendectomy Hx of hernia repair x2 Family History Grandfather Cancer stomach Social History Smoking and tobacco status: current every day smoker smokeless tobacco Smokeless tobacco user: chewing tobacco Alcohol intake: never Data Anesthesia Cardiac Studies: No Data to Display
--- NOTE | 2022-09-04 11:38 | W.PM.OPSUD ---
Surgery/Procedure H&P Update DATE OF PROCEDURE: September 04, 2022 DATE H&P PERFORMED: 08/25/22 H&P UPDATE INFORMATION: I have reviewed H&P completed within last 30 days, I have examined patient prior to procedure and No changes to prior documentation PREOP DIAGNOSIS: epigastric pain PLANNED PROCEDURE: Operation Date: 09/04/22 11:15 Proposed Procedures p [id number] egd R10.13(Not Applicable) - Richard Izquierdo DO
[2022-09-04 11:53] VITALS: BP 127/87; PULSE 75; RESP 12; TEMP 36.1; O2SAT 99
[2022-09-04 12:08] VITALS: BP 117/81; PULSE 67; RESP 17; TEMP 36.1; O2SAT 100
--- NOTE | 2022-09-04 18:00 | ANE.PACU2 ---
Inpatient post-anesthesia follow up: Airway intact: Yes Vital signs: Temperature 97.0 F Pulse Rate 67 Respiratory Rate 17 Blood Pressure 117/81 Pulse Oximetry 100 Oxygen Delivery Me thod Room Air Oxygen Flow Rate Fraction of Inspir ed Oxygen Hydration adequate: Yes Nausea and vomiting: No Pain level: 1 Mental status: Baseline
== END 2022-09-04 12:55 | disposition home or self-care (01) ==
PROVIDERS: PCP Family Medicine; Visit Provider Surgery
PROC: 0DJ08ZZ Inspection of Upper Intestinal Tract, Via Natural or Artificial Opening Endoscopic (ICD-10-PCS; CPT 43235; principal; 2022-09-04 11:15)
DX: R10.13 Epigastric pain (principal); K29.50 Unspecified chronic gastritis without bleeding; B96.81 Helicobacter pylori [H. pylori] as the cause of diseases classified elsewhere; G47.30 Sleep apnea, unspecified; F17.290 Nicotine dependence, other tobacco product, uncomplicated
CPT/HCPCS: 43239; 88305; 88342; J2704; J7030

== ENCOUNTER 2022-09-25 07:15 | Outpatient (CLI) | payer OTHER, SELFPAY ==
--- NOTE | 2022-09-25 08:00 | NM_ITS ---
WS: [id number] NUCLEAR MEDICINE HIDA SCAN WITH GALLBLADDER EJECTION FRACTION HISTORY: epigastric pain COMPARISON: Ultrasound 08/19/2022 TECHNIQUE: The patient was intravenously injected with 8.2 mCi of TC99m Mebrofenin. Immediate imaging over the right upper quadrant was followed by 5 minute image and additional images for a total of 60 minutes. Normal uptake of radiotracer throughout the liver. Activity identified in the gallbladder at 10 minutes and well distended by 60 minutes. Activity in the proximal small bowel was not visualized at 16. Good washout of the radiotracer from t he liver by 60 minutes. The patient then drank 8 ounces of Ensure Plus. Ejection fraction at 60 minutes was 97%. Normal GB ej ection fraction is 35-75%. Post fatty meal symptoms: None. NM/NM hepatobiliary w phar* [id number] IMPRESSION: 1. Normal HIDA scan. 2. Normal gallbladder ejection fraction.
== END 2022-09-25 07:16 | disposition home or self-care (01) ==
PROVIDERS: PCP Family Medicine; Visit Provider Surgery
DX: R10.13 Epigastric pain (principal)
CPT/HCPCS: 78227; A9537

== ENCOUNTER 2024-02-09 20:00 | Outpatient (CLI) | payer OTHER, SELFPAY | END 2024-02-09 20:01 | disposition home or self-care (01) | LOC: SLEEP 22:27 | PROVIDERS: PCP Family Medicine; Visit Provider Specialist | DX: G47.33 Obstructive sleep apnea (adult) (pediatric) (principal); R68.3 Clubbing of fingers; G47.19 Other hypersomnia | CPT/HCPCS: 95810 ==